=== PATIENT | female | born 1965 | race Caucasian/White ===

== ENCOUNTER 2022-11-17 18:39 | Emergency (ER) | payer MEDICAID ==
[~2022-11-17] VITALS: Ht 154.9 cm; Wt 112.5 kg
[2022-11-17 18:40] VITALS: BP_SYST 192
--- NOTE | 2022-11-17 18:45 | NUR ---
Patient triaged and placed in waiting room. VSS and patient appears in no acute distress at this time. Accompanied by SELF, awaiting available bed, and MD notified of need for MSE.
--- NOTE | 2022-11-17 22:04 | NUR ---
BROUGHT BACK TO BED #7 AND REPORT GIVEN TO MILA
[2022-11-17 22:08] LABS: BASOPHILS # (AUTO) 0.1 K/uL (0.0-0.2); BASOPHILS % (AUTO) 0.9 % (0.0-2.0); EOSINOPHILS # (AUTO) 0.2 K/uL (0.0-0.4); EOSINOPHILS % (AUTO) 2.9 % (0.0-4.0); HEMATOCRIT 35.1 % (36-48); HEMOGLOBIN 11.7 g/dL (12.0-16.0); LYMPHOCYTES % (AUTO) 42.7 % (20.5-51.5); MEAN CORPUSCULAR HEMOGLOBIN 31 pg (27-31); MEAN CORPUSCULAR HGB CONC 33 % (32-36); MEAN CORPUSCULAR VOLUME 93 fL (79.0-98.0); MONOCYTES # (AUTO) 0.3 K/uL (0.0-1.0); MONOCYTES % (AUTO) 4.3 % (1.7-9.3); NEUTROPHILS # (AUTO) 3.5 K/uL (1.8-7.7); NEUTROPHILS % (AUTO) 49.2 % (40.0-70.0); PLATELET COUNT (AUTO) 171 K/uL (130-430); RED BLOOD CELL COUNT(AUTO) 3.79 MIL/uL (4.2-6.2); RED CELL DISTRIBUTION WIDTH 17.6 % (9.0-15.0); WHITE BLOOD COUNT (AUTO) 7.1 K/uL (4.8-10.8)
--- NOTE | 2022-11-17 22:15 | NUR ---
Received report from LESLIE Melchor; assuming patient care at this time.
--- NOTE | 2022-11-17 22:20 | NUR ---
Patient presents to ED from home with c/o bilateral swelling in LE's x3 weeks. Patient reports pain 0/10 at this time. Patient states she went to [facility] ED x3 days ago for bilat LE swelling and is taking RX lasix. Patient reports it is helping but she was bit by a bug today and thinks that made the swelling worse. Patient has bilateral edema 1+ on both LE's. Patient A/Ox4, VSS, ambulatory, resp even and unlabored. Skin warm and dry; scaly patches of skin noted. NAD noted at this time. ER MD Lopez made aware.
[2022-11-17 22:28] LABS: ANION GAP 6 (5-15); CALCIUM 9.6 mg/dL (8.4-11.0); CHLORIDE 98 mmol/L (98-107); GFR AFRICAN AMERICAN 46 mL/min (>90); GLUCOSE 125 mg/dL (70-99); UREA NITROGEN, BLOOD 18 mg/dL (8-21)
[2022-11-17 22:35] LABS: ALANINE AMINOTRANSFERASE 54 U/L (12-78); ALBUMIN 4.1 g/dL (3.4-4.8); ASPARTATE AMINOTRANSFERASE 97 U/L (10-37); TOTAL BILIRUBIN 0.4 mg/dL (0.0-1.0)
--- NOTE | 2022-11-17 22:45 | NUR ---
ER MD Lopez at bedside examing patient.
--- NOTE | 2022-11-17 22:53 | NUR ---
ER at bedside examining patient.
[2022-11-17] MEDS ORDERED: PRED20TA PO (23:00)
[2022-11-17] MEDS ORDERED: DIPH25CA83 PO (23:00)
--- NOTE | 2022-11-17 23:39 | NUR ---
Patient A/Ox4, VSS, resp even and unlabored. Patient resting comfortably in bed with safety precautions in place and connected to monitor. Nad noted at this time.
[2022-11-17 23:43] VITALS: BP_SYST 177
--- NOTE | 2022-11-17 23:44 | NUR ---
Patient given written and verbal discharge instructions and verbalizes understanding. ER MD discussed with patient the results and treatment provided. Patient in stable condition. ID arm band removed. Rx of PREDNISONE, BENADRYL given. Patient educated on pain management and to follow up with PMD. Pain Scale 0/10. Opportunity for questions provided and answered. Medication side effect fact sheet provided.
== END 2022-11-17 23:43 | disposition home or self-care (01) ==
LOC: SED 18:39
DX: R60.9 Edema, unspecified (principal); R21 Rash and other nonspecific skin eruption; E11.9 Type 2 diabetes mellitus without complications; I10 Essential (primary) hypertension; Z79.899 Other long term (current) drug therapy
CPT/HCPCS: 36415; 80053; 83880; 84484; 85025; 99283